=== PATIENT | female | born 1960 | race Caucasian/White ===

== ENCOUNTER 2020-01-22 14:09 | Outpatient (CLI) | payer MEDICARE, MEDICAID, SELFPAY ==
--- NOTE | ~2020-01-22 | DEXA_ITS ---
Bone Density Report Name: Elizabeth Shaw Age: 59 Sex: Female Ethnicity: White Date of : 1960 Indication: postmenopausal; height loss; Referring Provider: Ana Rodriguez Study: Bone densitometry was performed. Exam Date: January 22, 2020 Accession number: [id number] Bone Density: Region BMD T-score Z-score Classification AP Spine (L1-L4) 1.113 0.6 2.1 Normal Femoral Neck (Left) 0.696 -1.4 -0.1 Osteopenia Total Hip (Left) 0.978 0.3 1.3 Normal Total Hip Bilateral Avg 0.965 0.2 1.2 Normal Femoral Neck (Right) 0.745 -0.9 0.4 Normal Total Hip (Right) 0.951 0.1 1.1 Normal World Health Organization criteria for BMD impression classify patients as: Normal (T-score at or above -1.0), Osteopenia (T-score between -1.0 and -2.5), or Osteoporosis (T-score at or below -2.5). 10-year Fracture Risk(1): Major Osteoporotic Fracture 7.7% Hip Fracture 0.6% Reported Risk Factors: [place] (), Neck BMD=0.696, BMI=31.0 (1) FRAX(R) Version 3.08. Fracture probability calculated for an untreated patient. Fracture probability may be lower if the patient has received treatment. Clinical Information Provided by Patient: Has used the following medications: Vitamin D Patient maximum height was 65 Menopause Age: 48 Onset of menses at age 12 Number of children 4 Impression: The patient has low bone mass, based on the Left Femoral Neck T-score. The patient has an estimated ten-year risk of hip fracture of 0.6% and an estimated ten-year risk of major fracture of 7.7%, based on the WHO FRAX algorithm. Discussion: BONE DENSITY IS LOW AT ONE OR MORE SKELETAL SITES. This patient's lowest T-score is low at one or more skeletal sites. It meets the World Health Organization's (WHO) criteria for ?low bone mass? (T-score between -1.0 and -2.5). The patient's 10-year risk of fracture as calculated by FRAX is less than the threshold where pharmacological therapy is recommended by the National Osteoporosis Foundation (NOF). However, all treatment decisions require clinical judgment and consideration of individual patient factors, including patient preferences, comorbidities, previous drug use, risk factors not captured in the FRAX model (e.g., frailty, falls, vitamin D deficiency, increased bone turnover, interval significant decline in bone density) and possible under or overestimation of fracture risk by FRAX. The patient should follow a healthful lifestyle (good nutrition with adequate calcium and vitamin D, and appropriate weight-bearing exercise). Follow-Up: Consider repeating this study in 2 to 3 years to reassess this patient's status, or sooner if there is some new clinical indication. Reported by: MAX on 01/22/2020 2:44:00 PM. Reviewed, dictated and finalized at lo
--- NOTE | ~2020-01-22 | MM_ITS ---
EXAMINATION: MM screening tati BI w yael HISTORY: Screening TECHNIQUE: Craniocaudal and mediolateral oblique 3-D tomosynthesis images were obtained and synthetic 2-D images were generated. CAD analysis was submitted and interpreted. COMPARISON: Comparison to multiple prior studies sequentially, with oldest reviewed study dated 09/04. BREAST PARENCHYMAL COMPOSITION: There are scattered areas of fibroglandular density. FINDINGS: There is no evidence of suspicious mass, calcification, or architectural distortion to sugg est malignancy in either breast. There has been no suspicious interval change. IMPRESSION: 1. No mammographic evidence of malignancy. 2. Recommend routine screening mammography in one year. BI-RADS Category 1: Negative Reviewed, dictated and finalized at location A.
== END 2020-01-22 14:10 | disposition home or self-care (01) ==
PROVIDERS: PCP Internal Medicine; Visit Provider Nurse Practitioner
DX: Z12.31 Encounter for screening mammogram for malignant neoplasm of breast (principal); Z78.0 Asymptomatic menopausal state; M85.852 Other specified disorders of bone density and structure, left thigh
CPT/HCPCS: 77063; 77067; 77080

== ENCOUNTER → 2020-03-03 10:58 | Outpatient (CLI) | payer MEDICARE, SELFPAY ==
--- NOTE | ~2020-03-03 | XR_ITS ---
XR knee LT 3V 03/03/2020 11:19 Indication: Left knee pain Procedure: 3 views left knee Comparison: No prior studies for comparison. Findings: There is mild osteoarthritis of the left knee. No fracture, subluxation or dislocation. No significant joint effusion. No foreign body. Impression: 1: Mild osteoarthritis of the left knee. Reviewed, dictated and finalized at location A. Impression: 1: Mild osteoarthritis of the left knee.
== END ==
PROVIDERS: PCP Internal Medicine; Visit Provider Nurse Practitioner
DX: M17.12 Unilateral primary osteoarthritis, left knee (principal)
CPT/HCPCS: 73562

== ENCOUNTER 2020-04-16 10:45 | Outpatient (RCR) | payer MEDICARE, MEDICAID, SELFPAY ==
--- NOTE | 2020-04-02 10:27 | PTOPEVAL ---
Thank you for referring Elizabeth Shaw to [facility].? The patient is scheduled to be seen for therapy? 2 x/week for 5 weeks. Please review, sign, date and return this plan of care LEANN. I agree with and certify that the following plan of care is medically necessary. Referring Physician Date Attending Provider: Fam Givens DO *PT Outpatient Evaluation Start: 04/02/20 09:01 Freq: Status: Active Protocol: Document 04/02/20 08:59 ALEX (Rec: 04/02/20 10:10 ALEX [id number]) Therapy Assessment Status Assessment Status Assessment Status Evaluation Outpatient Past Medical History Past Medical History Source of Past Medical History Patient,Recalled from Previous Visit, Confirmed with Patient /Family Neurological History Hx Other Neurological Disorders Yes: Markham's Palsy Cardiovascular History Hx Hypertension Yes Respiratory History Hx Respiratory Disorders No Significant History Gastrointestinal History Hx Gastroesophageal Reflux Disease Yes Musculoskeletal History Hx Arthritis Yes: OA knee Hx Fibromyalgia Yes Hx Orthopedic Surgery Yes: herniated disc, C6-7 s/p fusion 1999,2014 Integumentary History Hx Shingles Yes Evaluation Information Problem Diagnosis left knee pain Onset 2 months Cause weight lifting Additional Evaluation Detail use of medication to manage pain. Prior to injury her workout 3x /wk consisteted of walks on the TM 30 min, UE resistance exercises with free weights and universal resistance equipment. Subjective Information She was performing knee ext Query Text:As Reported By Patient/ machine when she experienced Family left knee. pain. She reports limitations with walking, standing, negotiating steps. Steps are more painful for descending. She has 13 steps to basement and 1 LES house. She has increased pain with prolonged sitting. She does not use a cane. She has increased pain with community walking due to pain. She c/o left knee stiffness with sleeping due to side sleeper. Pain Assessment Timing of Pain Assessment
--- NOTE | 2020-04-21 09:05 | PCPTNOTE ---
Patient called & cancelled scheduled appointment this date due to pain today.
--- NOTE | 2020-04-23 10:43 | PCPTNOTE ---
Patient called & cancelled scheduled appointment this date due to family emergency.
--- NOTE | 2020-04-30 11:23 | PCPTNOTE ---
Pt cancelled her re-evaluation and did not reschedule at this time. Will leave chart open for 2 wks, then plan for DC.
--- NOTE | 2020-05-19 13:01 | PCPTNOTE ---
Admitting Provider: Attending Provider: Fam Givens DO Patient:Elizabeth Shaw Date of :1960 Discharge Note Patient has not returned for any further treatments since 04/16/2020, therefore she will be discharged at this time. Patient?s initial visit was on 04/02/2020 09:00 and she had a total of 4 visits and 5 cancelled visits. The goals have been not met due to limited therapy visits attended. Thank you for referring this patient to [facility]. Please review, sign, date and return this discharge summary LEANN. I have been updated about the patient's current status and I agree with discharge from the above service at this time. Referring Physician Date
== END 2020-05-20 10:50 | disposition home or self-care (01) ==
LOC: ANHPT 10:45
PROVIDERS: PCP Internal Medicine; Visit Provider Internal Medicine
DX: M17.12 Unilateral primary osteoarthritis, left knee (principal)
CPT/HCPCS: 97110; 97112; 97140; 97162

== ENCOUNTER 2023-09-27 10:02 | Outpatient (CLI) | payer MEDICARE, SELFPAY ==
--- NOTE | ~2023-09-27 | DEXA_ITS ---
Bone Density Report Name: KALYAN VERGARA Age: 62 Sex: Female Ethnicity: White Date of : 1960 Indication: postmenopausal; screening for osteoporosis; height loss; Referring Provider: WES CHU Study: Bone densitometry was performed. Exam Date: September 27, 2023 Accession number: [id number] Bone Density: Region BMD T-score Z-score Classification AP Spine(L1-L4) 1.105 0.5 2.3 Normal Femoral Neck (Left) 0.726 -1.1 0.4 Osteopenia Total Hip (Left) 0.936 0.0 1.2 Normal Femoral Neck (Right) 0.700 -1.3 0.2 Osteopenia Total Hip (Right) 0.952 0.1 1.3 Normal Total Hip Mean 0.944 0.1 1.3 Normal World Health Organization criteria for BMD impression classify patients as: Normal (T-score at or above -1.0), Osteopenia (T-score between -1.0 and -2.5), or Osteoporosis (T-score at or below -2.5). 10-year Fracture Risk(1): Major Osteoporotic Fracture 8.4% Hip Fracture 0.8% Reported Risk Factors: [place] (), Neck BMD=0.700, BMI=26.9 (1) FRAX(R) Version 3.08. Fracture probability calculated for an untreated patient. Fracture probability may be lower if the patient has received treatment. Previous Exams: Region Exam Age BMD T-score BMD Change BMD Change Date g/cm2 vs Baseline vs Previous AP Spine (L1-L4) 09/27/2023 62 1.105 0.5 -0.008 (-0.7%) -0.008 (-0.7%) 01/22/2020 59 1.113 0.6 Total Hip(Left) 09/27/2023 62 0.936 0.0 -0.042 (-4.3%) -0.042 (-4.3%) 01/22/2020 59 0.978 0.3 Total Hip(Right) 09/27/2023 62 0.952 0.1 0.001 (0.2%) 0.001 (0.2%) 01/22/2020 59 0.951 0.1 *Denotes significance at 95% confidence level, LSC for AP Spine = 0.022 g/cm2, LSC for Total Hip = 0.027 g/cm2 Clinical Information Provided by Patient: Has used the following medications: Vitamin D Patient maximum height was 63 Menopause Age: 48 Drinks caffeinated beverages Onset of menses at age 12 Number of children 4 Missed period for more than 6 months in a row Impression: The patient has low bone mass, based on the Right Femoral Neck T-score. The patient has an estimated ten-year risk of hip fracture of 0.8% and an estimated ten-year risk of major fracture of 8.4%, based on the WHO FRAX algorithm. The BMD for the Total Hip(Left) decreased, changing by -4.3% since the last DXA exam. Discussion: BONE DENSITY IS LOW AT ONE OR MORE SKELETAL SITES. This patient's lowest T-score is low at one or more skeletal site
== END 2023-09-27 10:03 | disposition home or self-care (01) ==
PROVIDERS: PCP Nurse Practitioner Family; Visit Provider Nurse Practitioner Family
DX: Z12.31 Encounter for screening mammogram for malignant neoplasm of breast (principal); Z78.0 Asymptomatic menopausal state; M85.852 Other specified disorders of bone density and structure, left thigh; M85.851 Other specified disorders of bone density and structure, right thigh
CPT/HCPCS: 77080

== ENCOUNTER 2023-10-21 10:08 | Outpatient (CLI) | payer MEDICARE, SELFPAY ==
--- NOTE | ~2023-10-21 | MM_ITS ---
EXAMINATION: MM screening tati BI w yael HISTORY: Screening mammogram TECHNIQUE: Craniocaudal and mediolateral oblique 3-D tomosynthesis images were obtained and synthetic 2-D images were generated. CAD analysis was submitted and interpreted. COMPARISON: 01/22/2020 bilateral screening mammogram examination BREAST PARENCHYMAL COMPOSITION: There are scattered areas of fibroglandular density. FINDINGS: There is no evidence of suspicious mass, calcification, or architectural distortion to sugg est malignancy in either breast. There has been no suspicious interval change. IMPRESSION: 1. No mammographic evidence of malignancy. 2. Recommend routine screening mammography in one year. BI-RADS Category 1: Negative Reviewed, dictated and finalized at location B.
== END 2023-10-21 10:09 | disposition home or self-care (01) ==
LOC: ANHIMG 10:11
PROVIDERS: PCP Nurse Practitioner Family; Visit Provider Nurse Practitioner Family
DX: Z12.31 Encounter for screening mammogram for malignant neoplasm of breast (principal)
CPT/HCPCS: 77063; 77067

== ENCOUNTER 2023-12-09 09:25 | Outpatient (CLI) | payer MEDICARE, SELFPAY ==
[2023-12-09 10:06] LABS: Anion Gap 4 mmol/L (4-12); Blood Urea Nitrogen 21 mg/dL (7-17); Calcium 9.9 mg/dL (8.4-10.2); Carbon Dioxide 31 mmol/L (22-30); Chloride 103 mmol/L (98-107); Estimated Glomerular Filt Rate > 60; Glucose 133 mg/dL (65-110); Potassium 3.6 mmol/L (3.4-5.0); Sodium 138 mmol/L (137-145)
== END 2023-12-09 09:26 | disposition home or self-care (01) ==
LOC: ANHSURGERY 09:30
PROVIDERS: Anesthesiology; PCP Nurse Practitioner Family; Visit Provider Surgery
DX: R73.03 Prediabetes (principal); Z79.899 Other long term (current) drug therapy
CPT/HCPCS: 36415; 80048

== ENCOUNTER 2023-12-12 02:14 | Day surgery (SDC) | payer MEDICARE, SELFPAY ==
[2023-12-06 08:10] VITALS: BMI 25.0
--- NOTE | 2023-12-06 08:18 | PC.NURSE ---
Addendum entered by Ana Shelton RN 12/07/23 12:14: Skip the morning dose of Celebrex the day of surgery. You may take Tramadol if needed. Original Note: Report to the Outpatient Waiting Room, entrance under the green pavilion located off [facility], at time _1230_ on date _[id number]_. Planned Procedure Time: _230pm_. Time changes happen often and if your time is changed the preop area will call you the afternoon before. - You and your visitor will be asked to self-screen and do not enter if you have any COVID symptoms. - A mask is optional within the hospital at this time. Patients may have clear liquids (water, carbonated beverages, clear teas, apple juice) until 3 hours prior to surgery with a maximum of 20 ounces. - No food from midnight until time of surgery Take the following medications with a SIP of water the morning of surgery: __Duloxetine and Celebrex DO NOT STOP ANY OF YOUR OTHER PRESCRIPTION MEDICATIONS PRIOR TO SURGERY ?EXCEPT THE FOLLOWING Medications to discontinue per physician ____Biotin, Multivitamin and B complex Date to take last upfy_[id number] Please no make-up, nail persian, hairspray, perfume, deodorant, or body powder the day of surgery. No jewelry (including any body piercings) or valuables the day of surgery, leave them at home. Please take a shower or bath the night before, or the morning of, surgery with an antibacterial soap. Wear comfortable, loose fitting clothing. - Jewelry must be removed prior to entering the operating room. Rings and piercings that are not removed may be cut off. - The hospital will not accept responsibility for valuables. - Please leave all valuables, including medications, at home the day of surgery. If you are going home after surgery, a licensed entry driver operator must drive you home. - NO public transportation without another adult if you receive anesthesia. - We recommend that an adult stay with you for 24 hours following discharge. - We also recommend that you do not drive, make important decision, drink alcoholic beverages, or take any drugs that were not prescribed by your health care provider for at least 24 hours after your discharge time. Follow any additional instructions given to you from your surgeon. If you or anyone in your household have experienced Covid symptoms in the past week, please notify your surgeon or the nurse liaison at the phone number below for possible testing. Telephone instructions given to _Debbie__and asked if any additional questions and then verbalized understanding. Patient advised to call surgeon office or pre surgery nurse liaison [phone] if any additional questions.
--- NOTE | 2023-12-12 13:20 | P.PNAN_ITS ---
Anes - Initial Pre Proc Eval Procedure: Operation Date: 12/12/23 14:30 Proposed Procedures p Excision of Back Cysts - Harry Rojo DO Date/Time: 12/12/23 13:20 Surgeon: Harry Rojo DO Pre Op Diagnosis: sebaceous cyst 4.cm & 1cm Patient Data Age: 62 Gender: F Height: 1.65 m Weight: 68.2 kg Allergies Allergy/AdvReac Type Severity Reaction Status Date / Time spironolactone Allergy Unknown Unknown Verified 12/12/23 13:22 Home Medications Medication Instructions Recorded Confirmed Type biotin 1,000 mcg chewable tablet 1,000 mcg PO DAILY 01/09/20 12/06/23 History vitamin B complex (B 1 tablet PO DAILY 01/09/20 12/06/23 History Complex-Vitamin B12 tablet) montelukast 10 mg tablet 10 mg PO .every evening #90 tabs 09/29/23 12/06/23 Rx trazodone 100 mg tablet See Rx Instructions PO QHS #180 10/07/23 12/06/23 Rx tabs calcium carbonate 600 mg-vitamin 1 tablet PO BID 10/10/23 12/06/23 History D3 20 mcg (800 unit) chewable tablet (Caltrate 600 plus D) multivitamin 1 tablet PO DAILY 10/10/23 12/06/23 History tramadol 50 mg tablet 50 mg PO BID PRN pain #60 tabs 11/09/23 12/06/23 Rx celecoxib 200 mg capsule See Rx Instructions .Route 11/24/23 12/06/23 Rx .COMPLEX #180 caps duloxetine 60 mg capsule,delayed 60 mg PO DAILY #90 caps 11/24/23 12/06/23 Rx release indapamide 2.5 mg tablet 2.5 mg PO DAILY #90 tabs 11/24/23 12/06/23 Rx lisinopril 10 mg tablet 10 mg PO DAILY #90 tabs 11/24/23 12/06/23 Rx pantoprazole 40 mg tablet,delayed 40 mg PO QAM #90 tabs 11/24/23 12/06/23 Rx release potassium chloride 10 mEq See Rx Instructions .Route 11/24/23 12/06/23 Rx capsule,extended release .COMPLEX #90 caps Patient hx anesthesia problems: none Family hx anesthesia problems: none Results Review: All pre-operative results and documents have been reviewed as part of the pre- operative evaluation. [facility] Past Medical History Medical History Essential hypertension Fibromyalgia Gastroesophageal reflux disease H/O mammogram Insomnia Primary osteoarthritis of both hands Right foot pain Surgical History Surgical History H/O colonoscopy H/O excision of mass excision of benign chest wall cyst. H/O neck surgery Family History Family History Sibling Cerebrovascular accident Patient's sister is Family history of cardiovascular disease Father Diabetes mellitus Mother Diabetes mellitus, Onset Age: 77 Family history of Alzheimer's disease, Onset Age: 77 Other Hypertension Social History Social History Smoking status: Never smoker Alcohol intake: never Substance use: never Substance use type: does not use Lack of Transportation: No Lack of Food: Never True Current Housing: I Have Housing Concerned About Future Housing: No Difficulty Paying Gas/Electric Bills: No Difficulty Paying for Meds: No Currently Unemployed: No Education: High School Diploma/GED Difficulty w/ Childcare or Family Care: No Living arrangements: with family Occupation/Education: retired Spiritual care concerns: No Anes - Eval Final PreProcedure Day of Procedure 12/12/23 13:20 Patient weight: normal Heart: regular rate and rhythm Lungs: clear to auscultation Airway: Mallampati scale class II Neurological: alert and oriented Last oral intake: >/= 8 hours ASA classification: III Emergent: no Anesthetic plan: proceed Anesthesia type and monitoring: general GIVS and standard monitoring Results Review: All pre-operative results and documents have been reviewed as part of the pre- operative evaluation. Informed Consent: The patient's anesthetic plan and its attendant risks and benefits were discussed with the patient/family/POA. Questions were solicited and answers provided to the satisfaction of the patient/family/POA.
--- NOTE | 2023-12-12 13:21 | WPDHPUPDATE1 ---
History and Physical Update Update Date/Time: 12/12/23 13:21 History and Physical has been reviewed, including an updated exam of the patient. There are NO changes in the patient's condition. Risks, benefits, and alternatives have been discussed and questions answered. Patient agrees to proceed with procedure.
[2023-12-12 13:32] VITALS: BP 122/67; PULSE 95; RESP 14; TEMP 36.6; O2SAT 97; BMI 25.0
[2023-12-12] MEDS: ceFAZolin 2 GM/D5W 50 ML 2 GM/50 ML BAG IVPB (13:36)
[2023-12-12] MEDS: LACTATED RINGERS 1,000 ML 30 ML IV CONT (13:44)
[2023-12-12] MEDS: LIDO 1%/EPINEPHRINE 1:100,000 50 ML VIAL 30 ML INFILTRATE (13:52)
--- NOTE | 2023-12-12 13:55 | S_PTH ---
PATIENT: Elizabeth Shaw LOC: [facility] U#:[id number] AGE/SX: 62/F ROOM: RE12/12/[address]: Harry Rojo DO : 1960 BED: DIS: 12/12/2023 SPEC #: [id number] RECD: 12/12/23 14:21 STATUS: ANT REQ #: [id number] VANNESA: 12/12/23 13:[address]: Harry Rojo DEPT: [facility] Surgical RECD BY: Stephy Mercado ENTERED: 12/12/23 14:21 SP TYPE: Surgical OTHR DR: Melania Carmen APRN Tissues: A - Cyst Procedures: Hematoxylin and Eosin Stain Gross and Microscopic Level 4
[2023-12-12] MEDS: BACITRACIN OINTMENT 15 GM TUBE 1 APPLIC TOPICAL (13:59)
--- NOTE | 2023-12-12 14:05 | P.OP_ITS ---
Procedure Note - Detailed Date of Procedure 12/12/23 Pre-op Diagnosis Back cyst x2 Post-op Diagnosis Same ( 4 cm and 1 cm back cyst) Procedure Performed excision of 4 cm and 1 cm back cyst Surgeon Harry Rojo, DO Anesthesia MAC and Local ( 1% lidocaine with epinephrine) Indications this is a 62-year-old woman who presented with 2 back cysts. She recently had 1 that became larger and was infected. She was placed on antibiotics and the infection appeared to resolve. Discussions were made with the patient about risks of repeat infections. She also had a smaller cyst on her upper mid back that is similar to how the previous 1 started. Decision was made to proceed with excision of 4 cm and 1 cm back cyst. Findings Excision of 4 cm and 1 cm back cyst was performed. The patient had a 4 cm right mid back cyst that was just to the right of midline. This appeared to be an inclusion cyst. It was completely excised and sent to the lab for pathology. She then also had a 1 cm upper midline back cyst that also appeared to be an inclusion cyst. This was also excised and sent to the lab for pathology. Description of Procedure Procedure as well as risks, benefits, and alternatives were discussed with the patient. Written consent was obtained and placed in chart prior to procedure. Patient was brought back to surgical suite. She was placed in left lateral decubitus position on the operating table. Time-out was done to confirm patient and procedure. IV sedation was administered by the anesthesia department. Her back was then prepped and draped in sterile fashion using chlorhexidine prep. 1% lidocaine with epinephrine was infiltrated locally around the cysts. A 4 cm elliptical incision was made around the larger right midback cyst using a 15 blade scalpel. Sharp dissection was carried out around the cyst wall using the 15 blade scalpel. The cyst was completely excised and sent to the lab for pathology. The wound bed was then inspected. Hemostasis was achieved with elec trocautery. The skin edges were then reapproximated using 3-0 nylon vertical mattress interrupted sutures. A 1 cm elliptical incision was then made around the upper midline back cyst using a 15 blade scalpel. The cyst was sharply excised completely from the surrounding subcutaneous attachments using the 15 blade scalpel. It was excised completely. The wound edges were then reapproximated using 3-0 nylon simple interrupted sutures. Bacitracin ointment was then applied followed by 4 x 4 gauze and Medipore tape. The patient was then awakened from anesthesia and transferred to recovery. Estimated Blood Loss 5 Pathology Yes ( 4 cm and 1 cm back cyst) Complications No immediate complications Condition Stable Disposition Same day [facility] Billing Surgery - Charge Forward: Surgery Billing
[2023-12-12 14:19] VITALS: BP 122/68; PULSE 90; RESP 16; O2SAT 99
[2023-12-12] MEDS: oxyCODONE HCL (*CRX) 5 MG TAB IR PO (14:33)
[2023-12-12 14:45] VITALS: BP 120/62; PULSE 96; RESP 16
[2023-12-12 15:00] VITALS: BP 114/60; PULSE 92; RESP 18
== END 2023-12-12 15:06 | disposition home or self-care (01) ==
PROVIDERS: PCP Nurse Practitioner Family; Visit Provider Surgery
PROC: (CPT 11404; principal; 2023-12-12 14:30)
DX: L72.0 Epidermal cyst (principal); I10 Essential (primary) hypertension; K21.9 Gastro-esophageal reflux disease without esophagitis; M79.7 Fibromyalgia
CPT/HCPCS: 11404; 11401; 88305; A9270; J0690; J2004; J2250; J3010; J7120

== ENCOUNTER 2024-04-19 10:46 | Outpatient (CLI) | payer MEDICARE, SELFPAY ==
--- NOTE | ~2024-04-19 | XR_ITS ---
Left Shoulder Technique: AP and scapular Y views were obtained. Clinical History: Pain Findings: No fracture or dislocation is seen. Osseous alignment is anatomic. The glenohumeral joint d emonstrate moderate degenerative change with prominent in the medial humeral head osteophyte. There i s moderate AC joint degenerative change. Soft tissues are unremarkable. Impression: Moderate degenerative changes, as above. Reviewed, dictated and finalized at location M. & PRESIDENT Impression: Moderate degenerative changes, as above.
== END 2024-04-19 10:47 | disposition home or self-care (01) ==
PROVIDERS: PCP Nurse Practitioner Family; Visit Provider Nurse Practitioner Family
DX: M19.012 Primary osteoarthritis, left shoulder (principal)
CPT/HCPCS: 73030

== ENCOUNTER 2025-03-20 14:30 | Outpatient (RCR) | payer MEDICARE, SELFPAY | END 2025-05-13 10:51 | disposition home or self-care (01) | LOC: ANHDMC 14:30 | PROVIDERS: PCP Nurse Practitioner Family; Visit Provider Family Medicine | DX: E11.9 Type 2 diabetes mellitus without complications (principal); Z71.89 Other specified counseling; Z71.3 Dietary counseling and surveillance | CPT/HCPCS: G0108; G0109 ==

== ENCOUNTER 2025-05-06 14:20 | Outpatient (CLI) | payer MEDICARE, SELFPAY ==
--- NOTE | ~2025-05-06 | XR_ITS ---
XR lumbar spine 2-3V Indication: R10.A2 - Flank pain, left side Comparison: None Findings: Grade 1 retrolisthesis L2 on L3 L3 on L4, grade 1 anterolisthesis of L4 on L5, no acute fracture. Moderate loss of disc height throughout Soft tissues unremarkable Impression: No acute abnormality. Reviewed, dictated and finalized at location P. EDITOR Impression: No acute abnormality.
--- NOTE | ~2025-05-06 | XR_ITS ---
XR thoracic spine 3V Indication: R10.A2 - Flank pain, left side Comparison: None Findings: Mild dextroconvex scoliosis. Moderate loss of vertebral height throughout. No acute fracture or subluxation. Severe loss of disc height throughout. Soft tissues unremarkable Impression: No acute abnormality. Reviewed, dictated and finalized at location P. R BLOCK MECHANIC Impression: No acute abnormality.
== END 2025-05-06 14:21 | disposition home or self-care (01) ==
PROVIDERS: PCP Nurse Practitioner Family; Visit Provider Nurse Practitioner Family
DX: R10.A2 Flank pain, left side (principal); M54.9 Dorsalgia, unspecified; M54.10 Radiculopathy, site unspecified
CPT/HCPCS: 72072; 72100